=== PATIENT | female | born 1985 | race Two or more races ===

== ENCOUNTER 2021-04-16 13:37 | Inpatient (IN) | payer OTHER ==
[~2021-04-16] VITALS: Ht 162.6 cm; Wt 82.1 kg
[2021-04-16] MEDS ORDERED: PRENATAL TABLE1 EAC1 PO (15:22)
== END 2021-04-19 18:15 | disposition home or self-care (01) | DRG 807 ==
LOC: LDR 13:37 → OB/GYN 13:37 → LDR 18:13 → OB/GYN 04-17 00:56
PROVIDERS: ADMIT Obstetrics & Gynecology; ATTEND Obstetrics & Gynecology
PROC: 3E033VJ Introduction of Other Hormone into Peripheral Vein, Percutaneous Approach (ICD-10-PCS; 2021-04-16)
PROC: 4A1HXFZ Monitoring of Products of Conception, Cardiac Rhythm, External Approach (ICD-10-PCS; 2021-04-16)
PROC: 10E0XZZ Delivery of Products of Conception, External Approach (ICD-10-PCS; principal; 2021-04-17)
PROC: 0W8NXZZ Division of Female Perineum, External Approach (ICD-10-PCS; 2021-04-17)
PROC: 10907ZC Drainage of Amniotic Fluid, Therapeutic from Products of Conception, Via Natural or Artificial Opening (ICD-10-PCS; 2021-04-17)
DX: O80 Encounter for full-term uncomplicated delivery (principal); Z37.0 Single live birth; Z3A.39 39 weeks gestation of pregnancy